=== PATIENT | male | born 1960 | race Caucasian/White ===

== ENCOUNTER 2018-11-26 11:33 | Emergency (ER) | payer MEDICARE ==
[2018-11-26 12:12] VITALS: BP 145/89
--- NOTE | 2018-11-26 12:13 | ER Report ---
History and Physical Time Seen By MD: 12:13 Hx. of Stated Complaint: Patient short of breath and nausea. Ongoing for 4-5 days. HPI/ROS CHIEF COMPLAINT: Shortness of breath HISTORY OF PRESENT ILLNESS: 58-year-old male patient presents to emergency room with complaints shortness of breath. Patient states that he is visiting from [place]. He states that his daughter was ill, they try to go to urgent care and were sent to the ER because of his low oxygen saturation in his she didn't have an ID. Patient states that he has been feeling short of breath for the past 5 days. States he has some occasional chest pain. He denies any vomiting or diarrhea, however he states he has been nauseated. States he does have some pain in the right upper quadrant especially after eating. He states that the pain typically resolves on its own. He states that he's been out of his inhalers for the past several months. He states that typically he would get samples from his primary care provider. He states that he does have a history of COPD and believes that this is likely related to that. REVIEW OF SYSTEMS: Respiratory: As noted above Cardiovascular: Occasional chest pain which resolved spontaneously Gastrointestinal: As noted above. Musculoskeletal: No back pain. Allergies: Coded Allergies: No Known Drug Allergies (Unverified , 11/26/18) Home Meds Active Scripts Prednisone (PREDNISONE) 20 Mg Tablet, 20 MG PO BID, #8 TAB Prov:EREN CHEN JASMYNE 11/26/18 Past Medical/Surgical History Patient has a past medical history of hypertension, NE, hyperlipidemia, COPD, he will fissures, diverticulitis, fibromyalgia, type 2 diabetes, marijuana use, alcohol use, skin cancer. Patient has a past surgical history of appendectomy, 2 vessel CABG. Reviewed Nurses Notes: Yes Hx Substance Use Disorder: Yes ([facility]) Hx Alcohol Use: Yes (rare) Constitutional Vital Sign - Last 24 Hours 11/26/18 11/26/18 11/26/18 11/26/18 11:41 12:05 12:12 12:35 Temp 97.6 98.5 Pulse 104 73 75 Resp 20 20 18 B/P (MAP) 141/99 145/89 (107) Pulse Ox 83 90 O2 Delivery Room Air Nasal Cannula O2 Flow Rate 4.0 11/26/18 11/26/18 12:35 12:43 Pulse 69 Resp 18 Pulse Ox 90 O2 Delivery Nasal Cannula O2 Flow Rate 2.0 Physical Exam General Appearance: The patient is alert, has no immediate need for airway protection and no current signs of toxicity. Respiratory: Chest is non tender, lungs are diminished with wheezing throughout to auscultation. Cardiac: regular rate and rhythm, patient does have swelling to left lower extremity, patient states is not abnormal for him. Gastrointestinal: Abdomen is soft and non tender, no masses, bowel sounds normal. Musculoskeletal: Neck: Neck is supple and non tender. Extremities have full range of motion and are non tender. Skin: No rashes or lesions. DIFFERENTIAL DIAGNOSIS: After history and physical exam differential diagnosis was considered for shortness of breath including but not limited to pulmonary infectious process, COPD, asthma, pulmonary embolus and congestive heart failure. Medical Decision Making Data Points Result Diagram: 11/26/18 1238 11/26/18 1238 Laboratory Hematology Test 11/26/18 12:38 Red Blood Count 6.98 M/uL (4.00-5.60) Mean Corpuscular Volume 86.4 fL (80.0-96.0) Mean Corpuscular Hemoglobin 28.2 pg (26.0-33.0) Mean Corpuscular Hemoglobin Concent 32.7 g/dL (32.0-36.0) Red Cell Distribution Width 15.8 % (11.5-14.5) Mean Platelet Volume 8.3 fL (7.2-11.1) Neutrophils (%) (Auto) 47.2 % (39.4-72.5) Lymphocytes (%) (Auto) 40.1 % (17.6-49.6) Monocytes (%) (Auto) 10.9 % (4.1-12.4) Eosinophils (%) (Auto) 1.1 % (0.4-6.7) Basophils (%) (Auto) 0.7 % (0.3-1.4) Nucleated RBC Relative Count (auto) 0.1 /100WBC Neutrophils # (Auto) 3.1 K/uL (2.0-7.4) Lymphocytes # (Auto) 2.7 K/uL (1.3-3.6) Monocytes # (Auto) 0.7 K/uL (0.3-1.0) Eosinophils # (Auto) 0.1 K/uL (0.0-0.5) Basophils # (Auto) 0.0 K/uL (0.0-0.1) Nucleated RBC Absolute Count (auto) 0.01 K/uL D-Dimer Quantitative (PE/DVT) 2.96 ug/ml (0-0.50) Sodium Level 138 mmol/L (137-145) Potassium Level 4.4 mmol/L (3.5-5.0) Chloride Level 107 mmol/L (98-107) Carbon Dioxide Level 26 mmol/L (22-30) Blood Urea Nitrogen 15 mg/dl (9-21) Creatinine 0.70 mg/dl (0.66-1.25) Glomerular Filtration Rate Calc > 60.0 Random Glucose 187 mg/dl (75-110) Calcium Level 9.1 mg/dl (8.4-10.2) Total Bilirubin 0.4 mg/dl (0.2-1.3) Aspartate Amino Transf (AST/SGOT) 30 U/L (0-35) Alanine Aminotransferase (ALT/SGPT) 47 U/L (0-56) Alkaline Phosphatase 97 U/L (0-126) Troponin I < 0.012 ng/ml B-Type Natriuretic Peptide < 5 pg/ml (0-100) Total Protein 7.3 g/dl (6.3-8.2) Albumin 4.0 g/dl (3.5-5.0) Chemistry Test 11/26/18 12:38 White Blood Count 6.7 k/uL (4.5-11.0) Red Blood Count 6.98 M/uL (4.00-5.60) Hemoglobin 19.7 g/dL (14.0-18.0) Hematocrit 60.3 % (42.0-52.0) Mean Corpuscular Volume 86.4 fL (80.0-96.0) Mean Corpuscular Hemoglobin 28.2 pg (26.0-33.0) Mean Corpuscular Hemoglobin Concent 32.7 g/dL (32.0-36.0) Red Cell Distribution Width 15.8 % (11.5-14.5) Platelet Count 192 K/uL (150-450) Mean Platelet Volume 8.3 fL (7.2-11.1) Neutrophils (%) (Auto) 47.2 % (39.4-72.5) Lymphocytes (%) (Auto) 40.1 % (17.6-49.6) Monocytes (%) (Auto) 10.9 % (4.1-12.4) Eosinophils (%) (Auto) 1.1 % (0.4-6.7) Basophils (%) (Auto) 0.7 % (0.3-1.4) Nucleated RBC Relative Count (auto) 0.1 /100WBC Neutrophils # (Auto) 3.1 K/uL (2.0-7.4) Lymphocytes # (Auto) 2.7 K/uL (1.3-3.6) Monocytes # (Auto) 0.7 K/uL (0.3-1.0) Eosinophils # (Auto) 0.1 K/uL (0.0-0.5) Basophils # (Auto) 0.0 K/uL (0.0-0.1) Nucleated RBC Absolute Count (auto) 0.01 K/uL D-Dimer Quantitative (PE/DVT) 2.96 ug/ml (0-0.50) Glomerular Filtration Rate Calc > 60.0 Calcium Level 9.1 mg/dl (8.4-10.2) Total Bilirubin 0.4 mg/dl (0.2-1.3) Aspartate Amino Transf (AST/SGOT) 30 U/L (0-35) Alanine Aminotransferase (ALT/SGPT) 47 U/L (0-56) Alkaline Phosphatase 97 U/L (0-126) Troponin I < 0.012 ng/ml B-Type Natriuretic Peptide < 5 pg/ml (0-100) Total Protein 7.3 g/dl (6.3-8.2) Albumin 4.0 g/dl (3.5-5.0) Coagulation Test 11/26/18 12:38 D-Dimer Quantitative (PE/DVT) 2.96 ug/ml EKG/Imaging Imaging EXAMINATION: CTA of the chest with IV contrast HISTORY: Shortness of breath. Elevated d-dimer. TECHNIQUE: Pulmonary embolus protocol - Thin axial CT images of the chest were obtained with IV contrast during maximal pulmonary arterial opacification. Reconstruction of the source data includes multiplanar 2D coronal and sagittal reconstructed images, and 3D coronal and sagittal MIP images. [employer] images have been stored on PACS. One of the following dose optimization techniques was utilized in the performance of this exam: Automated exposure control; adjustment of the mA and/or kV according to the patient's size; or use of an iterative reconstru ction technique. Specific details can be referenced in the facility's radiology CT exam operational policy. Contrast: 140 mL of IV Isovue-300. COMPARISON: None. FINDINGS: Pulmonary arteries: The pulmonary arteries are moderately well opacified, without suspicious filling defect. Heart, aorta, and great vessels: Normal caliber thoracic aorta, without aneurysm or dissection. Sternotomy with surgical changes of CABG. Normal heart size. No pericardial effusion. Lungs and pleura: Slight scarring or atelectasis in the lower lungs. No suspicious focal consolidation. There is mild diffuse bronchial wall thickening. No pleural effusion or pneumothorax. Mediastinum and kristal: Negative. Visualized upper abdomen: Unremarkable. Chest wall: Negative. Bones: No acute osseous findings. Scattered degenerative changes along the spine. IMPRESSION: 1. No evidence of pulmonary embolism. 2. Mild diffuse bronchial wall thickening may be compatible with an acute or chronic bronchitis. No evidence of a focal pneumonia. Mild scarring or atelectasis in the lower lungs. 3. Sternotomy with surgical changes of CABG. Report Dictated By: Maurilio Mao MD at 11/26/2018 2:09 PM Report E-Signed By: Maurilio Mao MD at 11/26/2018 2:18 PM CHEST PA LAT Indication: RESP DISTRESS Comparison: None. Findings: Lungs: Prominent interstitial markings are seen to both lungs. Linear atelectas is/scar left lung base is seen. Mediastinum/pulmonary vasculature: Heart size and pulmonary vasculature are normal. Bones/soft tissues: Sternotomy wires are seen. IMPRESSION: Prominent interstitial markings both lungs. Differential diagnosis includes chronic interstitial changes, and pulmonary vasculature congestion. Report Dictated By: Juan Bhakta at 11/26/2018 1:40 PM Report E-Signed By: Juan Bhakta at 11/26/2018 1:41 PM ED Course/Re-evaluation ED Course Patient was admitted to exam room, history and physical were obtained. Differential diagnoses were considered. On examination lungs are diminished with wheezing, heart is regular, abdomen is soft and nontender. An IV was started, a CBC, CMP, BNP, troponin, EKG, chest x-ray, nebulizer treatment were done. Patient also received a dose of 125 mg slightly Medrol. A d-dimer was also done. Troponin was negative, BNP was negative, CBC and CMP were also unremarkable. EKG showed a normal sinus rhythm. Chest x-ray showed no acute findings but likely chronic bronchitis. Patient did have an elevated d-dimer of 2.5. I discussed this with the patient. We did go ahead and do a CT pulmonary angiogram. There is no obvious clot found. They found signs of chronic bronchitis. I discussed findings with the patient. We will go ahead and discharge him home at this time. Patient will be given an order for home oxygen, he does have home oxygen back home in [place] but did not bring it with him to [place]. Patient is follow-up with emergency room if condition worsens. Patient verbalized understanding and agreement with plan. We will go ahead and treat him with prednisone for the next 5 days, will also get him back on his inhalers, albuterol and Advair. Decision to Disposition Date: Nov 26, 2018 Decision to Disposition Time: 14:42 Depart Departure Latest Vital Signs Vital Signs Date Time Temp Pulse Resp B/P (MAP) Pulse Ox O2 Delivery O2 Flow Rate FiO2 11/26/18 12:43 69 18 11/26/18 12:35 90 Nasal Cannula 2.0 11/26/18 12:12 98.5 145/89 (107) Impression: Primary Impression: COPD exacerbation Condition: Improved Disposition: HOME OR SELF-CARE New Scripts Prednisone (PREDNISONE) 20 Mg Tablet 20 MG PO BID, #8 TAB Prov: EREN CHEN 11/26/18 Departure Forms: ER Transition Record, Home Oxygen, Nebulizer RX, Durable Medical Equipment-Oxygen: Oxygen Concentrator, Portable Oxygen Gas Reason for Use/Diagnosis: COPD exacerbation, hypoxia Start Date of the Order: Nov 26, 2018 Dosage or Concentration (if applicable) - LPM: 2 Route of Administration (if applicable): Nasal Cannula Frequency of Use: Continuous Duration Home O2 Required: 2 Duration Units: Weeks Room Air Oxygen Saturation: 83 ER Prescribing Physician's Name: Eren Chen NPI Numbers for Local ER MDs: Gustavo [id number] Medications Reconciliation, Patient Portal Information Patient Instructions: COPD (Chronic Obstructive Pulmonary Disease) (ED) Additional Instructions: Increase fluid intake. Get plenty of rest. Follow up with your primary care provider in the next week. No Metformin for the next 3 days. The Prednisone will make your blood sugar higher. Return to the ER if condition worsens. EREN CHEN Nov 26, 2018 12:13
[2018-11-26] MEDS ORDERED: methylPREDNIS SUCC 125 MG/2ML IVP ONE (12:25)
[2018-11-26] MEDS ORDERED: ALBUTEROL/IPRATROPIUM 3 ML NEB NEB ONE (12:25)
[2018-11-26 12:47] LABS: PLATELET COUNT, AUTOMATED 192 K/uL (150-450)
--- NOTE | 2018-11-26 12:49 | EKG ---
FACILITY: [facility] PATIENT NAME: KARO LLAMAS : [id number] MR: [id number] V: [id number] EXAM DATE: ORDERING PHYSICIAN: NILDA AGUIRRE TECHNOLOGIST: PABLITO Pulido Reason : SOB \ CP Blood Pressure : / mmHG Vent. Rate : 066 BPM Atrial Rate : 066 BPM P-R Int : 224 ms QRS Dur : 092 ms QT Int : 378 ms P-R-T Axes : 045 040 074 degrees QTc Int : 396 ms Sinus rhythm with 1st degree AV block Low voltage QRS Septal infarct , age undetermined Abnormal ECG No previous ECGs available Confirmed by Judah Wright ([id number]) on 11/26/2018 9:47:21 PM Referred By: TIMOTHY Confirmed By:Judah Duarte
--- NOTE | 2018-11-26 13:44 | RADIOLOGY IMAGING REPORT ---
FACILITY: [facility] PATIENT NAME: Deyanira Dial : 1960 MR: [id number] V: [id number] EXAM DATE: ORDERING PHYSICIAN: NILDA AGUIRRE TECHNOLOGIST: [facility] Patient: Deyanira Dial : 1960 Visit/Account:[id number] Date of Sevice: 11/26/2018 CHEST PA LAT Indication: RESP DISTRESS Comparison: None. Findings: Lungs: Prominent interstitial markings are seen to both lungs. Linear atelectasis/scar left lung bas e is seen. Mediastinum/pulmonary vasculature: Heart size and pulmonary vasculature are normal. Bones/soft tissues: Sternotomy wires are seen. IMPRESSION: Prominent interstitial markings both lungs. Differential diagnosis includes chronic interstitial rubens nges, and pulmonary vasculature congestion. Report Dictated By: Juan Bhakta at 11/26/2018 1:40 PM Report E-Signed By: Juan Bhakta at 11/26/2018 1:41 PM WSN:[email or web address]
[2018-11-26] MEDS ORDERED: IOPAMIDOL 61% 50 ML INFUS BTL 50 ML ONE (13:51)
[2018-11-26] MEDS ORDERED: IOPAMIDOL 61% 100 ML INFUS BTL 100 ML ONE (13:52)
[2018-11-26] MEDS ORDERED: NS(*) 0.9% 50 ML BAG 50 ML ONE (13:53)
--- NOTE | 2018-11-26 14:21 | RADIOLOGY IMAGING REPORT ---
FACILITY: [facility] [place] PATIENT NAME: Deyanira Dial : 1960 MR: [id number] V: [id number] EXAM DATE: ORDERING PHYSICIAN: NILDA AGUIRRE TECHNOLOGIST: Location: [facility] Patient: Deyanira Dial : 1960 Visit/Account:[id number] Date of Sevice: 11/26/2018 EXAMINATION: CTA of the chest with IV contrast HISTORY: Shortness of breath. Elevated d-dimer. TECHNIQUE: Pulmonary embolus protocol - Thin axial CT images of the chest were obtained with IV con trast during maximal pulmonary arterial opacification. Reconstruction of the source data includes mul tiplanar 2D coronal and sagittal reconstructed images, and 3D coronal and sagittal MIP images. Repres entative images have been stored on PACS. One of the following dose optimization techniques was utilized in the performance of this exam: Autom ated exposure control; adjustment of the mA and/or kV according to the patient's size; or use of an i terative reconstruction technique. Specific details can be referenced in the facility's radiology C T exam operational policy. Contrast: 140 mL of IV Isovue-300. COMPARISON: None. FINDINGS: Pulmonary arteries: The pulmonary arteries are moderately well opacified, without suspicious filling defect. Heart, aorta, and great vessels: Normal caliber thoracic aorta, without aneurysm or dissection. Ster notomy with surgical changes of CABG. Normal heart size. No pericardial effusion. Lungs and pleura: Slight scarring or atelectasis in the lower lungs. No suspicious focal consolidati on. There is mild diffuse bronchial wall thickening. No pleural effusion or pneumothorax. Mediastinum and kristal: Negative. Visualized upper abdomen: Unremarkable. Chest wall: Negative. Bones: No acute osseous findings. Scattered degenerative changes along the spine. IMPRESSION: 1. No evidence of pulmonary embolism. 2. Mild diffuse bronchial wall thickening may be compatible with an acute or chronic bronchitis. No e vidence of a focal pneumonia. Mild scarring or atelectasis in the lower lungs. 3. Sternotomy with surgical changes of CABG. Report Dictated By: Maurilio Mao MD at 11/26/2018 2:09 PM Report E-Signed By: Maurilio Mao MD at 11/26/2018 2:18 PM WSN:[id number]
[2018-11-26] MEDS ORDERED: predniSONE 20 MG TAB PO ONE (14:40)
[2018-11-26] MEDS ORDERED: PRED20TA6 PO (14:44)
[2018-11-26] MEDS ORDERED: SALMETEROL/FLUTIC 250/50 1 INH INH ONE (14:45)
[2018-11-26] MEDS ORDERED: ALBUTEROL 8 GM INHALER INH ONE (14:45)
== END 2018-11-26 15:10 | disposition home or self-care (01) ==
LOC: ER 11:46
DX: J44.1 Chronic obstructive pulmonary disease with (acute) exacerbation (principal)
CPT/HCPCS: 71046; 71275; 83880; 84484; 85025; 85379; 93005; 94640; 96374; 99284; J2930; J3535; J7050; J7512; J7620; Q9967; 82040; 82247; 82310; 82374; 82435; 82565; 82947; 84075; 84132; 84155; 84295; 84450; 84460; 84520